=== PATIENT | female | born 1990 | race Caucasian/White ===

== ENCOUNTER 2020-07-12 11:10 | Outpatient (REF) | payer OTHER, SELFPAY ==
[2020-07-13 08:08] LABS: Syphilis Screen Nonreactive (Nonreactive)
[2020-07-13 08:59] LABS: HIV AB/AG Nonreactive (Nonreactive); HIV Num 1 0.14 S/CO (0.00-0.99); ~HepC Num1 0.09 S/CO (0.00-0.79); ~Hepatitis C Antibody Nonreactive (Nonreactive)
[2020-07-13 09:46] LABS: BV Int Neg Control Negative (Negative); BV Int Pos Control Positive (Positive)
[2020-07-13 19:02] LABS: C. trachomatis RNA TMA NOT DETECTED (NOT DETECTED); N. gonorrhoeae RNA TMA NOT DETECTED (NOT DETECTED)
== END 2020-07-12 11:11 | disposition home or self-care (01) ==
LOC: HO.LAB 11:10
PROVIDERS: Visit Provider Nurse Practitioner Family
DX: Z76.89 Persons encountering health services in other specified circumstances (principal); Z20.822 Contact with and (suspected) exposure to COVID-19
CPT/HCPCS: 36415; 86780; 86803; 87255; 87389; 87480; 87491; 87510; 87591; 87660; U0003

== ENCOUNTER 2020-07-12 11:29 | Outpatient (REF) | payer OTHER, SELFPAY | END 2020-07-12 11:30 | disposition home or self-care (01) | LOC: HO.HMGCLDS 11:29 | PROVIDERS: Visit Provider Nurse Practitioner Family | DX: Z13.89 Encounter for screening for other disorder (principal) ==